=== PATIENT | female | born 2000 | race Caucasian/White ===

== ENCOUNTER 2018-08-31 15:28 | Emergency (ER) | payer BC ==
[2018-08-31 15:45] VITALS: BP 97/60
--- NOTE | 2018-08-31 16:07 | EDPHY ---
H & P Time Seen by Provider: 08/31/18 15:40 HPI/ROS: HPI Anxiety. 18-year-old female by private vehicle with her sister. This patient has a history of anxiety and panic attacks. She moved to [place] recently and has been living with her sister. She has no longer had any prescription medications. 2 years ago, she reports that she was on a combination of Xanax, Ambien and Lexapro. She has not taken these medications in at least 2 years. She reports that since coming to [place] she is been more anxious. She is currently working at a fast food restaurant. She reports she has been having a particular hard time sleeping the last 3 nights. She is asking for help so she can sleep. She denies suicidal thoughts. No other complaints. ROS: Constitutional: No fever, no chills. As above. Eyes: No discharge. No changes in vision. ENT: No sore throat. No nasal congestion or rhinorrhea. Respiratory: No cough. No shortness of breath. Cardiac: No chest pain, no palpitations. Gastrointestinal: No abdominal pain, no vomiting, no diarrhea. Genitourinary: No hematuria. No dysuria or increased frequency with urination. Musculoskeletal: No back pain. No neck pain. No myalgias or arthralgias. Skin: No rashes. Neurological: No headache. No focal weakness or altered sensation. Past medical history: As above. Social history: Nonsmoker. No alcohol. Denies IV drugs and street drugs. Here with her sister. Lives with her sister. Physical Exam: General Appearance: Alert, she is mildly anxious but not in distress. This patient is responding to questions appropriately and in full sentences. This patient appears well-hydrated and well-nourished. Eyes: Pupils equal and round no pallor or injection. No lid edema, erythema or injection. Respiratory: There are no retractions, lungs are clear to auscultation with good air movement bilaterally. Cardiovascular: Regular rate and rhythm. No murmur. Neurological: Motor sensory function is grossly intact. Cranial nerves are normal. Gait is normal. Skin: Warm and dry, no rashes. Musculoskeletal: Neck is supple and nontender. Extremities are symmetrical. All joints range without pain or impingement. Psychiatric: No agitation. No depression. Database: EKG: Imaging: Procedures: Emergency department course: Triage vital signs reviewed and are normal. Patient's presentation is consistent with insomnia secondary to anxiety. I will prescribe her a short course of Ambien. I have discussed follow-up with [facility]. She feels comfortable going home with her sister. Return to emergency department precautions were thoroughly reviewed with her. All of her questions were answered. She was discharged from the emergency department in good condition. Differential Diagnosis: The differential diagnosis on this patient includes but is not limited to panic attack, anxiety reaction, insomnia secondary to anxiety. Severe major depression, suicidal ideation unlikely. This represents a partial list of diagnoses considered. These considerations are based on history, physical exam , past history, reassessment and diagnostic testing. Smoking Status: Never smoked Constitutional: Initial Vital Signs Temperature (C) 36.8 C 08/31/18 15:42 Heart Rate 79 08/31/18 15:42 Respiratory Rate 18 08/31/18 15:42 Blood Pressure 97/60 L 08/31/18 15:42 O2 Sat (%) 98 08/31/18 15:42 O2 Delivery Mode Room Air Allergies/Adverse Reactions: No Known Allergies Allergy (Unverified 08/31/18 15:41) Home Medications: Medication Instructions Recorded Zolpidem Tartrate [Ambien] 10 mg PO DAILY AT 9PM #10 tablet 08/31/18 Departure - Departure Disposition: Home, Routine, Self-Care Clinical Impression: Anxiety, Insomnia Condition: Good Instructions: Anxiety (ED), Insomnia (ED) Additional Instructions: Read and follow provided instructions. Follow-up with [facility] or a psychiatrist next week for re- evaluation as discussed. Take medication as prescribed. Ambien 10 mg tablets: 1 orally at night right before sleep. Do not drive on this medication. Return to the emergency department for worsening symptoms, suicidal thoughts, major depression or other serious concerns. Referrals: [facility] [Outside] - As per Instructions Prescriptions: Zolpidem Tartrate [Ambien] 10 mg PO DAILY AT 9PM #10 tablet
== END 2018-08-31 16:20 | disposition home or self-care (01) ==
DX: F41.9 Anxiety disorder, unspecified (principal); G47.00 Insomnia, unspecified